=== PATIENT | female | born 1965 | race Caucasian/White ===

== ENCOUNTER 2016-12-11 17:03 | Inpatient (IN) | payer OTHER ==
[2016-12-11] MEDS ORDERED: IPRATROPIUM/ALBUTEROL SULFATE 3 ML AMPUL.NEB NEB ONE ×3 (17:25→18:46)
--- NOTE | 2016-12-11 18:42 | ED Physician Documentation ---
General Adult - HISTORIAN Historian: patient - HPI Stated Complaint: cough and Short of Breath Timing: still present Severity: moderate Context: has URI with wheezing and increasing SOB Further Comments: yes (Started have some fever and chills, productive cough of clear phlegm, no blood, no chest pain noted. Start having increasing SOB, used MDI 4-5 times today. Is still smoking.) - PAST HX Past History: COPD, other (renal cell carcinoma) Other History: none Surgeries/Procedures: hysterectomy, other (partial neprectomy) Immunizations: denies: influenza - SOCIAL HX Smoking History: greater than 1 pack/day (1 ppd) Alcohol Use: none Drug Use: none - FAMILY HX Family History: No - VITAL SIGNS Vital Signs: Vital Signs Temp Pulse Resp BP Pulse Ox 92 H 20 138/82 92 12/11/16 17:03 12/11/16 17:03 12/11/16 17:03 12/11/16 17:03 <Eliezer Jamil - Last Filed: 12/11/16 18:36> - HPI Chief Complaint: Dyspnea - ROS CONST: no problems CVS/RESP: shortness of breath - PAST HX Past History: COPD, other Other History: none Surgeries/Procedures: hysterectomy, other - SOCIAL HX Smoking History: greater than 1 pack/day Alcohol Use: none Drug Use: none - FAMILY HX Family History: No - VITAL SIGNS Vital Signs: Vital Signs Temp Pulse Resp BP Pulse Ox 92 H 20 138/82 92 12/11/16 17:03 12/11/16 17:03 12/11/16 17:03 12/11/16 17:03 - REVIEWED ASSESSMENTS Nursing Assessment Reviewed: Yes Vitals Reviewed: Yes <Madan Quick - Last Filed: 12/11/16 20:03> - PAST HX Allergies/Adverse Reactions: Allergies Allergy/AdvReac Type Severity Reaction Status Date / Time gabapentin Allergy Unknown Verified 12/11/16 17:20 iv dye Allergy Unknown Uncoded 12/11/16 17:20 Home Medications: Ambulatory Orders Medication Instructions Recorded Aclidinium [place] [Tudorza 400 mcg IH QID 12/02/15 Pressair] Albuterol Sulfate [Ventolin Hfa] 1 puff IH Q6H 12/02/15 ED Results Lab/Radiology - Orders Orders: ED Orders Category Date Time Status Ipratropium/Albuterol Sulfate [Duoneb] Med 12/11/16 17:25 Discontinued 3 ml NEB .STK-MED ONE <Eliezer Jamil - Last Filed: 12/11/16 18:36> - Lab Results Lab Results: Lab Results 12/11/16 19:39 WBC 6.60 K/ul K/ul (4.00-12.00) RBC 4.36 M/ul M/ul (3.90-5.20) Hgb 14.0 g/dL g/dL (12.0-16.0) Hct 41.8 % % (34.5-46.5) MCV 95.9 fl fl (80.0-100.0) MCH 32.0 pg pg (28.0-34.0) MCHC 33.4 g/dL g/dL (30.0-36.0) RDW 12.9 % % (11.3-14.3) Plt Count 309 K/mm3 K/mm3 (130-400) Neut % (Auto) 87.6 % H % (39.0-79.0) Lymph % (Auto) 6.7 % L % (16.0-50.0) [place] % (Auto) 4.4 % % (0.0-11.0) Eos % (Auto) 0.6 % % (0.0-6.8) Baso % (Auto) 0.1 (0.0-1.5) Neut # 5.8 # k/uL # k/uL (1.4-7.7) Lymph # 0.4 # k/uL L # k/uL (0.6-4.0) [place] # 0.3 # k/uL # k/uL (0.0-0.9) Eos # 0.0 # k/uL # k/uL (0.0-0.6) Baso # 0.0 # k/uL # k/uL (0.0-0.5) Reactive Lymphs % 0.7 % % (0.0-5.0) Reactive Lymphs # 0.0 # k/uL # k/uL (0.0-0.8) - Orders Orders: ED Orders Category Date Time Status Place Saline Lock/IV Now Care 12/11/16 18:46 Active CHEST P.A.&LAT 2 VIEWS [RAD] Routine Exams 12/11/16 Taken CBC/PLATELET/DIFF Routine Lab 12/11/16 19:39 Completed CMP Routine Lab 12/11/16 19:39 Received INFLUENZA A&B Routine Lab 12/11/16 18:46 Uncollected Ipratropium/Albuterol Sulfate [Duoneb] Med 12/11/16 17:25 Discontinued 3 ml NEB .STK-MED ONE Ipratropium/Albuterol Sulfate [Duoneb] Med 12/11/16 17:30 Discontinued 3 ml NEB NOW ONE Ipratropium/Albuterol Sulfate [Duoneb] Med 12/11/16 18:46 Discontinued 3 ml NEB NOW ONE methylPREDNISolone SOD SUCC [Solu-MEDROL] Med 12/11/16 18:46 Discontinued 125 mg IVP NOW ONE Oxygen Daily Oxygen 12/11/16 19:00 Ordered EKG WITH COMPARISON Stat Ther 12/11/16 Ordered <Madan Quick - Last Filed: 12/11/16 20:03> General Adult Physical Exam - PHYSICAL EXAM GENERAL APPEARANCE: mild distress EENT: pharynx normal, no signs of dehydration. No: pharyngeal erythema, abnormal TM NECK: normal inspection, supple RESPIRATORY: chest non-tender, wheezes (bilat) CVS: tachycardia ABDOMEN: soft, no organomegaly, abnormal bowel sounds BACK: normal inspection, no CVA tenderness SKIN: warm/dry EXTREMITIES: non-tender NEURO: oriented X3, mood/affect nml, cognition normal <Eliezer Jamil - Last Filed: 12/11/16 18:36> - PHYSICAL EXAM GENERAL APPEARANCE: no distress EENT: pharynx normal, no signs of dehydration NECK: normal inspection, supple RESPIRATORY: chest non-tender, wheezes (scant end exp wheezes b/l. ) CVS: tachycardia ABDOMEN: soft, no organomegaly, abnormal bowel sounds BACK: normal inspection, no CVA tenderness SKIN: warm/dry NEURO: oriented X3, mood/affect nml, cognition normal <Madan Quick - Last Filed: 12/11/16 20:03> Discharge <Eliezre Jamil - Last Filed: 12/11/16 18:36> Comments: admit to [facility], spoke on phone and accepts admission. Continuous pulse Ox, q4h nebs, IV steroids. Will start oral zithromax. Brief smoking intervention given. Decision to Admit: [id number] Date of Decison to Admit: 12/11/16 Decision Time: 19:53 <Madan Quick - Last Filed: 12/11/16 20:03> Clincal Impression: COPD exacerbation, Smoking Referrals: Primary Doctor,No [Primary Care Provider] - 2 Days Home Medications: Ambulatory Orders Aclidinium [place] [Tudorza Pressair] 400 mcg IH QID 12/02/15 Albuterol Sulfate [Ventolin Hfa] 1 puff IH Q6H 12/02/15 Condition: Good Disposition: 09 ADMITTED INPATIENT
[2016-12-11] MEDS ORDERED: methylPREDNISolone SOD SUCC 125 MG/2 ML VIAL IVP ONE (18:46)
[2016-12-11 19:47] LABS: BASOPHILS % 0.1 (0.0-1.5); EOSINOPHILS % 0.6 % (0.0-6.8); LYMPHOCYTES # 0.4 # k/uL (0.6-4.0); MONOCYTES # 0.3 # k/uL (0.0-0.9); MONOCYTES % 4.4 % (0.0-11.0); NEUTROPHILS # 5.8 # k/uL (1.4-7.7)
[2016-12-11 19:57] LABS: eGFR (African) > 60; eGFR (Non-African) > 60
[2016-12-11] MEDS ORDERED: AZITHROMYCIN 250 MG TABLET PO ONE (20:01)
[2016-12-11] MEDS ORDERED: ALBUTEROL SULFATE 2.5 MG/3 ML AMPUL.NEB NEB PRN (20:56)
[2016-12-11] MEDS ORDERED: SALINE FLUSH 10 ML DISP.SYRIN IV SCH (21:00)
[2016-12-11] MEDS ORDERED: PHARMACY KEY 1 EACH EACH MC ONE (22:29)
[2016-12-11 23:09] VITALS: BMI 42.2
[2016-12-11] MEDS: ENOXAPARIN SODIUM 30 MG/0.3 ML DISP.SYRIN SQ SCH (23:41)
--- NOTE | 2016-12-12 00:07 | Diagnostic Imaging Report ---
Report Submission Date: Dec 11, 2016 7:11:45 PM GREEN WARE CASTER Patient ~ Study Name: LAVELL TOWNSEND ~ Date: Dec 11, 2016 6:54:38 PM GREEN WARE CASTER ~ Modality Type: CR Gender: F ~ Description: CHEST : 65 ~ Institution: [facility] Physician: ELIEZER PEDROZA ~ ~ ~ ~ Chest PA and lateral views Clinical history: Dyspnea and cold sweats . Normal heart shadow and mediastinum. Mild pulmonary emphysema. No acute infiltrate or pleural effusion. No signs of congestive heart failure . Impression: Pulmonary emphysema without acute infiltrates or pleural effusion ~ Electronically signed on Dec 11, 2016 7:11:45 PM GREEN WARE CASTER by: Eliezer LEIGH
[2016-12-12] MEDS ORDERED: SALINE FLUSH 10 ML DISP.SYRIN IVF ONE (04:22)
[2016-12-12] MEDS ORDERED: methylPREDNISolone SOD SUCC 125 MG/2 ML VIAL ONE (04:22)
[2016-12-12] MEDS ORDERED: 0.9 % SODIUM CHLORIDE 100 ML IV ONE (04:23)
[2016-12-12] MEDS ORDERED: methylPREDNISolone SOD SUCC 125 MG/2 ML VIAL IVP ONE (06:18)
[2016-12-12] MEDS ORDERED: METHYLPREDNISOLONE SOD SUCC IV SCH (07:00)
[2016-12-12] MEDS ORDERED: methylPREDNISolone SOD SUCC 125 MG/2 ML VIAL IVP SCH (07:00)
[2016-12-12] MEDS ORDERED: SODIUM CHLORIDE 0.9% IV SCH (07:00)
--- NOTE | 2016-12-12 08:00 | History and Physical Report ---
History of Present Illnes - History of Present Illness Reason for Visit: COPD exacerbation and URI History of Present Illness: 51 year old female admitted through the Emergency Department for shortness of breath. She states the shortness of breath started yesterday morning. She states she was exposed to the flu at work. She notes she has a history of COPD and was found to have an O2 saturation of 82% on room air at time of arrival in the ER. She has a Ventolin inhaler at home which was not helping. She states she also uses Qvar twice a day at home. She has not had flu or pneumonia vaccinations and declines them both at this time. She is a current every day smoker smoking 1ppd and is not interested in quitting at this time. Her primary care physician is Dr. Steven. She states besides her breathing issues she is feeling well. She denies any fever, chills, nausea, vomiting, sore throat, ear pain, chest pain or other concerns today. - Past Medical History Cardiac: denies: HTN Pulmonary: COPD. denies: Pneumonia Gastrointestinal: GERD Heme/Onc: Cancer (History of Renal Cell Carcinoma) - Past Surgical History Past Surgical History: Hysterectomy (Total), Tubal Ligation (prior to hysterectomy), Other (Partial nephrectomy) - Past Social History Smoke: 1 pack per day (or more) Alcohol: Rare Drugs: None Lives: Alone - Health Maintenance Health Maintenance: denies: Influenza Vaccine, Pneumococcal Vaccine Influenza Vaccine: No (Patient refuses vaccine at time of interview) Pneumonia Vaccine: No (patient refuses at time of interview) Resuscitation Status: Resusciation Status Resuscitation Status Full Code Review of Systems - Review of Systems Constitutional: negative: Fever, Chills, Weakness Eyes: negative: vision change ENT: Nose Discharge (mild). negative: Ear Pain, Throat Pain, Throat Swelling Respiratory: Cough, Shortness of Breath, SOB with Excertion, Wheezing. negative : Hemoptysis Cardiovascular: negative: Chest Pain, Edema Gastrointestinal: negative: Nausea, Vomiting, Abdominal Pain, Diarrhea, Constipation Genitourinary: negative: Dysuria Musculoskeletal: Deferred Skin: negative: Rash, Lesions Neurological: negative: Change in Speech, Confusion - Medications/Allergies Allergies/Adverse Reactions: Allergies Allergy/AdvReac Type Severity Reaction Status Date / Time gabapentin Allergy Unknown Verified 12/11/16 17:20 iv dye Allergy Unknown Uncoded 12/11/16 17:20 Current Inpatient Medications: Current Inpatient Medications Albuterol Sulfate (Ventolin) 2.5 mg NEB Q4 PRN PRN Reason: Wheezing Enoxaparin Sodium (Lovenox) 30 mg SQ Q12H [facility] Stop: 12/18/16 08:57 Last Admin: 12/11/16 23:41 Dose: Not Given Methylprednisolone Sodium Succinate (Solu-Medrol) 62.5 mg IVP BID [facility] Sodium Chloride (Normal Saline Flush) 3 ml IV BID [facility] Last Admin: 12/11/16 23:41 Dose: 3 ml Exam - Exam Vital Signs: Vital Signs (72 hours) 12/11/16 12/11/16 12/11/16 20:45 20:53 20:56 Temperature 100.1 F H Pulse Rate [ 100 H 107 H Left Pulse ox] Respiratory 18 16 Rate Blood Pressure 133/68 127/71 [Right Arm] O2 Sat by Pulse 92 92 92 Oximetry 12/11/16 12/12/16 12/12/16 22:00 02:00 06:00 Temperature 100.1 F H 99.7 F H 98.6 F Pulse Rate [ 107 H 99 H 103 H Left Pulse ox] Respiratory 16 16 20 Rate Blood Pressure 127/71 112/54 130/77 [Right Arm] O2 Sat by Pulse 92 93 91 L Oximetry General: Alert, Oriented to Person, Oriented to Place, Oriented to Time, Cooperative, No acute distress, Obese HEENT: Atraumatic, EOMI, Mouth Mucous membr. moist/[place], Nose Mucous membr. moist/[place] Neck: Normal Range of Motion Lungs: Speaks full Sentences, Wheezes (diffuse), Decreased Air Movement Cardiovascular: Regular rate, Normal S1, Normal S2, No murmurs Abdomen: Soft, No tenderness, No masses Integumentary: Normal, [place], Warm, Dry Extremities: No clubbing, No cyanosis, No edema, Normal pulses, No tenderness/ swelling Neurological: Normal gait, Normal speech, Normal tone, Sensation intact Psych/Mental Status: Mood NL, Appropriate Affect, Intact Judgment Assessment/Plan - Assessment/Plan (1) COPD exacerbation Status: Acute Current Visit: Yes Assessment: Patient's O2 saturation remains in the low 90s on 2L O2. She states she is feeling much better and would like to go home today. She is getting scheduled breathing treatments, steroids, and antibiotics for her condition. Plan: Continue breathing treatments QID. Nursing will attempt to titrate off O2 today. Steroids and antibiotics will be continued. Patient has refused Influenza and pneumonia vaccinations. (2) Smoking Status: Acute Current Visit: Yes Assessment: Patient is a current every day smoker. She is not interested in quitting at this time. Plan: Discussed the risk of smoking. Patient not interested in quitting at this time. VTE Assessment - RISK FACTOR SCORE VTE <18 YEARS OF AGE: PATIENT IS < 18 YEARS OF AGE VTE RISK FACTOR SCORES: AGE 40-60 YEARS, ACUTE RESPIRATORY FAILURE/SEVERE COPD, SMOKER - RISK VTE MODERATE RISK: SCORE OF 2 (RISK PROXIMAL DVT 2-4%) PROPHYAXIS NEEDED
[2016-12-12] MEDS ORDERED: SODIUM CHLORIDE 0.9% IVP SCH (09:00)
[2016-12-12] MEDS ORDERED: METHYLPREDNISOLONE SOD SUCC IVP SCH (09:00)
[2016-12-12] MEDS: ENOXAPARIN SODIUM 30 MG/0.3 ML DISP.SYRIN SQ SCH ×2 (09:14→20:24)
[2016-12-12] MEDS: AZITHROMYCIN 250 MG TABLET PO SCH (09:51)
[2016-12-12] MEDS: methylPREDNISolone SOD SUCC 125 MG/2 ML VIAL IVP SCH ×2 (09:51→22:06)
[2016-12-12] MEDS: SALINE FLUSH 10 ML DISP.SYRIN IVF SCH ×2 (09:52→22:09)
[2016-12-12] MEDS: IPRATROPIUM/ALBUTEROL SULFATE 3 ML AMPUL.NEB NEB SCH ×3 (13:33→22:06)
[2016-12-13] MEDS: methylPREDNISolone SOD SUCC 125 MG/2 ML VIAL IVP SCH ×2 (08:14→20:32)
[2016-12-13] MEDS: SALINE FLUSH 10 ML DISP.SYRIN IVF SCH ×2 (08:15→20:33)
[2016-12-13] MEDS: ENOXAPARIN SODIUM 30 MG/0.3 ML DISP.SYRIN SQ SCH ×2 (08:15→20:42)
[2016-12-13] MEDS: AZITHROMYCIN 250 MG TABLET PO SCH (08:15)
[2016-12-13] MEDS: IPRATROPIUM/ALBUTEROL SULFATE 3 ML AMPUL.NEB NEB SCH ×4 (08:20→20:33)
--- NOTE | 2016-12-13 21:37 | Inpatient Progress Note ---
Subjective - Required Recertification Statement I anticipate X number of days because-include discharge plan: 1 day - Review of Systems HEENT: Denies: Head Aches Pulmonary: Dyspnea, Cough Cardiovascular: Denies: Chest Pain, Palpitations Gastrointestinal: Denies: Nausea, Vomiting Objective - Exam Vitals and I&O: Vital Signs Temp 97.6 F 12/13/16 17:49 Pulse 109 H 12/13/16 17:49 Resp 20 12/13/16 17:49 BP 141/70 12/13/16 17:49 Pulse Ox 93 12/13/16 18:00 Intake & Output 12/12/16 12/13/16 12/13/16 23:59 11:59 23:59 Intake Total 800 500 920 Balance 800 500 920 Weight 111.584 kg Intake: Oral 800 500 920 Other: Voiding Method Toilet Toilet # Voids 4 # Bowel Movements 1 General: Alert, Oriented to Person, Oriented to Place, Oriented to Time, Cooperative Lungs: Speaks full Sentences, Respiratory Distress (mild), Wheezes (with forced expiration). No: Rales, Rhonchi Cardiovascular: Regular rate Abdomen: Normal bowel sounds, Soft, No tenderness Extremities: No clubbing, No cyanosis, No edema Skin: Normal, [place], Warm, Dry Psych/Mental Status: Mental status NL, Mood NL, Appropriate Affect, Intact Judgment - Results Results: Laboratory Results WBC 6.60 K/ul (4.00-12.00) 12/11/16 19:39 RBC 4.36 M/ul (3.90-5.20) 12/11/16 19:39 Hgb 14.0 g/dL (12.0-16.0) 12/11/16 19:39 Hct 41.8 % (34.5-46.5) 12/11/16 19:39 MCV 95.9 fl (80.0-100.0) 12/11/16 19:39 MCH 32.0 pg (28.0-34.0) 12/11/16 19:39 MCHC 33.4 g/dL (30.0-36.0) 12/11/16 19:39 RDW 12.9 % (11.3-14.3) 12/11/16 19:39 Plt Count 309 K/mm3 (130-400) 12/11/16 19:39 Neut % (Auto) 87.6 % (39.0-79.0) H 12/11/16 19:39 Lymph % (Auto) 6.7 % (16.0-50.0) L 12/11/16 19:39 [place] % (Auto) 4.4 % (0.0-11.0) 12/11/16 19:39 Eos % (Auto) 0.6 % (0.0-6.8) 12/11/16 19:39 Baso % (Auto) 0.1 (0.0-1.5) 12/11/16 19:39 Neut # 5.8 # k/uL (1.4-7.7) 12/11/16 19:39 Lymph # 0.4 # k/uL (0.6-4.0) L 12/11/16 19:39 [place] # 0.3 # k/uL (0.0-0.9) 12/11/16 19:39 Eos # 0.0 # k/uL (0.0-0.6) 12/11/16 19:39 Baso # 0.0 # k/uL (0.0-0.5) 12/11/16 19:39 Reactive Lymphs % 0.7 % (0.0-5.0) 12/11/16 19:39 Reactive Lymphs # 0.0 # k/uL (0.0-0.8) 12/11/16 19:39 Sodium 139 mmol/L (136-145) 12/11/16 19:39 Potassium 3.9 mmol/L (3.5-5.0) 12/11/16 19:39 Chloride 110 mmol/L (98-110) 12/11/16 19:39 Carbon Dioxide 27 mmol/L (20-32) 12/11/16 19:39 BUN 14 mg/dL (10-26) 12/11/16 19:39 Creatinine 0.6 mg/dL (0.4-1.5) 12/11/16 19:39 Estimated Creat Clear 177 12/11/16 19:39 Est GFR ( Amer) > 60 (60-) 12/11/16 19:39 Est GFR (Non-Af Amer) > 60 (60-) 12/11/16 19:39 Glucose 110 mg/dL (70-99) H 12/11/16 19:39 Calcium 9.3 mg/dL (8.5-10.5) 12/11/16 19:39 Total Bilirubin 0.2 mg/dL (0.2-1.2) 12/11/16 19:39 AST 23 U/L (0-41) 12/11/16 19:39 ALT 19 U/L (0-45) 12/11/16 19:39 Alkaline Phosphatase 83 U/L (46-116) 12/11/16 19:39 Total Protein 7.4 g/dL (6.0-8.5) 12/11/16 19:39 Albumin 4.7 g/dL (3.0-5.5) 12/11/16 19:39 Influenza A (Rapid) Negative (NEGATIVE) 12/11/16 19:30 Influenza B (Rapid) Negative (NEGATIVE) 12/11/16 19:30 Assessment/Plan - Assessment/Plan (1) COPD exacerbation Status: Acute Current Visit: Yes Assessment: Will continue with IV steroids and HFN treatments. Patient continues to desat into the mid 80s with ambulation off oxygen. Is making some improvement, slower then anticipated.
[2016-12-14] MEDS: ENOXAPARIN SODIUM 30 MG/0.3 ML DISP.SYRIN SQ SCH (08:24)
[2016-12-14] MEDS: SALINE FLUSH 10 ML DISP.SYRIN IVF SCH (08:24)
[2016-12-14] MEDS: AZITHROMYCIN 250 MG TABLET PO SCH (08:29)
[2016-12-14] MEDS: IPRATROPIUM/ALBUTEROL SULFATE 3 ML AMPUL.NEB NEB SCH ×3 (09:10→17:00)
[2016-12-14] MEDS: methylPREDNISolone SOD SUCC 125 MG/2 ML VIAL IVP SCH (09:10)
[2016-12-14 09:15] LABS: BASOPHILS % 0.1 (0.0-1.5); EOSINOPHILS % 0.4 % (0.0-6.8); LYMPHOCYTES # 1.1 # k/uL (0.6-4.0); MEAN CORPUSCULAR HEMOGLOBIN 31.8 pg (28.0-34.0); MONOCYTES # 0.4 # k/uL (0.0-0.9); MONOCYTES % 5.8 % (0.0-11.0); NEUTROPHILS # 5.2 # k/uL (1.4-7.7)
[2016-12-14 09:34] LABS: eGFR (African) > 60; eGFR (Non-African) > 60
[2016-12-14] MEDS ORDERED: PNEUMOCOCCAL 23-VAL IM ONE (10:00)
[2016-12-14 19:14] VITALS: BP 128/71
--- NOTE | 2016-12-15 07:02 | Diagnostic Imaging Report ---
[facility] [address] [facility] [address] [address] ~ ~ ~ ~ Report Submission Date: Dec 14, 2016 3:52:44 PM MILK HAULER Patient ~ Study Name: LAVELL TOWNSEND ~ Date: Dec 14, 2016 1:16:09 PM MILK HAULER ~ Modality Type: CR Gender: F ~ Description: CHEST : 65 ~ Institution: [facility] Physician [facility]/MED SURG ~ ~ ~ Chest two views HISTORY: ~ Dyspnea FINDINGS: ~ The lungs are moderately hyperinflated without infiltrate or pleural effusion. ~ Heart size and pulmonary vascularity are are normal. ~Visualized osseous structures are unremarkable. ~ IMPRESSION: ~ Chronic obstructive pulmonary disease. ~ Electronically signed on Dec 14, 2016 3:52:44 PM MILK HAULER by: Chuckie LEIGH
--- NOTE | 2017-01-22 11:30 | Discharge Summary ---
Discharge Summary - Discharge Sumary History of Present Illness: 51 year old female admitted through the Emergency Department for shortness of breath. She states the shortness of breath started yesterday morning. She states she was exposed to the flu at work. She notes she has a history of COPD and was found to have an O2 saturation of 82% on room air at time of arrival in the ER. She has a Ventolin inhaler at home which was not helping. She states she also uses Qvar twice a day at home. She has not had flu or pneumonia vaccinations and declines them both at this time. She is a current every day smoker smoking 1ppd and is not interested in quitting at this time. Her primary care physician is Dr. Steven. She states besides her breathing issues she is feeling well. She denies any fever, chills, nausea, vomiting, sore throat, ear pain, chest pain or other concerns today. Home Medications: Ambulatory Orders Medication Instructions Recorded Aclidinium [place] [Tudorza 400 mcg IH QID 12/02/15 Pressair] Albuterol Sulfate [Ventolin Hfa] 1 puff IH Q6H 12/02/15 Allergies/Adverse Reactions: Allergies Allergy/AdvReac Type Severity Reaction Status Date / Time gabapentin Allergy Unknown Verified 12/11/16 17:20 iv dye Allergy Unknown Uncoded 12/11/16 17:20 Discharge Summary: Patient was admitted and started on Azithromycin for possible bronchitis. She was started on Douned, IV methoprednisolone. She made some slow improvement over the first 24 hours. By the day of discharge was feeling better and moving air much better. Patient still required supplemental oxygen therapy to maintain SAO2 at an adequate level. Labs remained stable. Patient was discharged in stable condition. - Final Diagnosis (1) COPD exacerbation Problems: Improved, dischaged on tapering dose of steroid, supplemental oxygen. Advised to stop smoking, was given information to help stop.
== END 2016-12-14 06:40 | disposition home or self-care (01) | DRG 192 ==
LOC: ED 17:03 → SOUTH 20:34
PROVIDERS: ADMIT Family Medicine; ATTEND Family Medicine
DX: J44.1 Chronic obstructive pulmonary disease with (acute) exacerbation (principal)
CPT/HCPCS: 36415; 71020; 80053; 85025; 87400; 90732; 93005; 99284; G0379; J1650; J2930; 99222; 99232; 99238; S1016